=== PATIENT | male | born 1965 | race African-American/Black ===

== ENCOUNTER 2020-11-22 20:40 | Inpatient (IN) ==
[2020-11-23] MEDS ORDERED: Ondansetron 4 MG/2 ML VIAL IVP ONE (00:45)
[2020-11-23] MEDS ORDERED: Morphine Sulfate 2 MG/ML SYRINGE IVP ONE ×2 (00:46→03:46)
[2020-11-23 01:20] LABS: Basophils # 0.1 K/mcL (0.0-0.2); Basophils % 0.5 %; Eosinophils # 0.3 K/mcL (0.0-0.6); Eosinophils % 1.9 %; Hematocrit 38.1 % (37.5-50.1); Hemoglobin 12.8 g/dL (12.9-16.9); Immature Granulocytes % 0.4 % (0-4); Lymphocytes # 2.3 K/mcL (0.6-4.6); Lymphocytes % 16.3 %; Mean Corpuscular HGB Conc 33.6 g/dL (31.6-35.5); Mean Corpuscular Hemoglobin 26.9 pg (28.0-33.3); Mean Platelet Volume 10.7 fL (9.4-12.4); Monocytes # 0.8 K/mcL (0.0-1.3); Monocytes % 5.8 %; Neutrophils # 10.8 K/mcL (1.6-8.9); Platelet Count 332 K/mcL (140-400); Red Blood Count 4.76 M/mcL (4.19-5.50); Red Cell Distribution Width 14.7 % (11.5-14.5); Segmented Neutrophils % 75.1 %; White Blood Count 14.4 K/mcL (4.3-11.1)
[2020-11-23 02:04] LABS: BUN/Creatinine Ratio 15 (6-26); Blood Urea Nitrogen 20 mg/dL (6-20); Calcium 9.8 mg/dL (8.6-10.3); Carbon Dioxide 24 mEq/L (23-29); Chloride 103 mEq/L (98-107); Glucose 118 mg/dL (70-105); Osmolality,Calculated 290 (280-300); Potassium 3.6 mEq/L (3.5-5.1); Sodium 138 mEq/L (136-145); eGFR For African Americans > 60 (> 60); eGFR For Non-African Americans 57 (> 60)
[2020-11-23] MEDS ORDERED: Lidocaine 1% 20 ML MDV INFILT ONE (03:15)
[2020-11-23] MEDS ORDERED: Vancomycin 1,500 MG/265 ML IV.SOLN IVPB ONE (04:07)
[2020-11-23] MEDS ORDERED: Piperacillin/Tazobactam 3.375 GM in 0.9 % Sodium Chloride Mini Bag 100 ML IVPB ONE (04:07)
[2020-11-23 05:02] LABS: Appearance,Synovial Fluid Hazy (Clear-Hazy); Color,Synovial Fluid Red (Straw); Source,Synovial Fluid left knee arthrocent
[2020-11-23] MEDS ORDERED: Naloxone 0.4 MG/ML INJ IVP PRN (05:44)
[2020-11-23] MEDS ORDERED: Acetaminophen 325 MG TABLET PO PRN (05:44)
[2020-11-23] MEDS ORDERED: 0.9 % Sodium Chloride 1,000 ML IVC ONE (05:45)
[2020-11-23] MEDS ORDERED: Morphine Sulfate 2 MG/ML SYRINGE IVP PRN (06:07)
[2020-11-23 07:13] LABS: Source,Synovial Fluid Left knee
[2020-11-23 07:19] LABS: Appearance,Synovial Fluid Hazy (Clear-Hazy); Color,Synovial Fluid Straw (Straw)
[2020-11-23] MEDS ORDERED: *HR* HYDROmorphone 2 MG/ML SYRINGE IVP ONE (08:26)
[2020-11-23 08:43] LABS: Lymphocytes,Synovial Fluid 0 %
[2020-11-23 11:04] LABS: Bilirubin,Urine Negative (Negative); Blood,Urine Negative (Negative); Clarity,Urine Clear (Clear); Color,Urine Light-Yellow (Yellow); Glucose,Urine (UA) Normal (Normal); Ketones,Urine Negative (Negative); Leukocyte Esterase,Urine Negative (Negative); Nitrite,Urine Negative (Negative); Protein,Urine Trace mg/dL (Neg-Trace); Specific Gravity,Urine 1.019 (1.010-1.025); Urobilinogen,Urine Normal (Normal)
[2020-11-23] MEDS: Acetaminophen IV 1,000 MG/100 ML BAG IVPB SCH ×3 (12:47→23:52)
[2020-11-23 13:03] LABS: Chlamydia Trachomatis DNA Ur NOT DETECTED (Not Detect)
[2020-11-23] MEDS: Piperacillin/Tazobactam 3.375 GM in 0.9 % Sodium Chloride Mini Bag 100 ML IVPB SCH ×2 (15:57→23:53)
[2020-11-23] MEDS: Melatonin 3 MG TABLET PO PRN (21:46)
[2020-11-24] MEDS: Vancomycin 1,500 MG/265 ML IV.SOLN IVPB SCH (05:08)
[2020-11-24 05:26] LABS: Basophils # 0.1 K/mcL (0.0-0.2); Basophils % 0.4 %; Eosinophils # 0.3 K/mcL (0.0-0.6); Eosinophils % 2.6 %; Hematocrit 35.1 % (37.5-50.1); Hemoglobin 11.8 g/dL (12.9-16.9); Immature Granulocytes % 0.5 % (0-4); Lymphocytes # 1.6 K/mcL (0.6-4.6); Lymphocytes % 13.7 %; Mean Corpuscular HGB Conc 33.6 g/dL (31.6-35.5); Mean Corpuscular Hemoglobin 26.7 pg (28.0-33.3); Mean Corpuscular Volume 79.4 fL (83.0-100.0); Mean Platelet Volume 10.6 fL (9.4-12.4); Monocytes # 1.1 K/mcL (0.0-1.3); Monocytes % 9.2 %; Neutrophils # 8.7 K/mcL (1.6-8.9); Platelet Count 293 K/mcL (140-400); Red Blood Count 4.42 M/mcL (4.19-5.50); Red Cell Distribution Width 14.7 % (11.5-14.5); Segmented Neutrophils % 73.6 %; White Blood Count 11.8 K/mcL (4.3-11.1)
[2020-11-24 05:54] LABS: BUN/Creatinine Ratio 11 (6-26); Blood Urea Nitrogen 13 mg/dL (6-20); Calcium 9.4 mg/dL (8.6-10.3); Carbon Dioxide 24 mEq/L (23-29); Chloride 101 mEq/L (98-107); Glucose 130 mg/dL (70-105); Osmolality,Calculated 280 (280-300); Sodium 134 mEq/L (136-145); eGFR For African Americans > 60 (> 60); eGFR For Non-African Americans > 60 (> 60)
[2020-11-24] MEDS: Acetaminophen IV 1,000 MG/100 ML BAG IVPB SCH ×4 (07:38→23:07)
[2020-11-24] MEDS: Piperacillin/Tazobactam 3.375 GM in 0.9 % Sodium Chloride Mini Bag 100 ML IVPB SCH ×3 (07:42→23:11)
[2020-11-24] MEDS: amLODIPine 5 MG TABLET PO SCH (07:45)
[2020-11-24] MEDS: Gabapentin 400 MG CAPSULE PO SCH ×3 (07:45→20:03)
[2020-11-24] MEDS: Ketorolac 15 MG/ML VIAL IVP PRN ×2 (12:05→20:09)
[2020-11-24] MEDS: Pantoprazole 40 MG VIAL IVP SCH (12:05)
[2020-11-24 13:01] LABS: Procalcitonin 0.26 ng/mL (0.00-0.15)
[2020-11-25] MEDS: Ketorolac 15 MG/ML VIAL IVP PRN ×3 (05:41→21:58)
[2020-11-25] MEDS: Vancomycin 1,500 MG/265 ML IV.SOLN IVPB SCH (05:41)
[2020-11-25] MEDS: Acetaminophen IV 1,000 MG/100 ML BAG IVPB SCH (07:29)
[2020-11-25] MEDS: Piperacillin/Tazobactam 3.375 GM in 0.9 % Sodium Chloride Mini Bag 100 ML IVPB SCH ×3 (07:36→23:57)
[2020-11-25] MEDS: Pantoprazole 40 MG VIAL IVP SCH (07:36)
[2020-11-25] MEDS: amLODIPine 5 MG TABLET PO SCH (07:36)
[2020-11-25] MEDS: Gabapentin 400 MG CAPSULE PO SCH ×3 (07:36→21:58)
[2020-11-25 08:57] LABS: Source,Synovial Fluid Right knee
[2020-11-25 10:13] LABS: Appearance,Synovial Fluid Hazy (Clear-Hazy); Color,Synovial Fluid Straw (Straw)
[2020-11-25 10:18] LABS: Basophils # 0.1 K/mcL (0.0-0.2); Basophils % 0.6 %; Eosinophils # 0.6 K/mcL (0.0-0.6); Hematocrit 34.1 % (37.5-50.1); Hemoglobin 11.2 g/dL (12.9-16.9); Immature Granulocytes % 0.4 % (0-4); Lymphocytes # 1.5 K/mcL (0.6-4.6); Lymphocytes % 14.8 %; Mean Corpuscular HGB Conc 32.8 g/dL (31.6-35.5); Mean Corpuscular Hemoglobin 26.5 pg (28.0-33.3); Mean Corpuscular Volume 80.6 fL (83.0-100.0); Monocytes # 0.5 K/mcL (0.0-1.3); Monocytes % 4.9 %; Neutrophils # 7.6 K/mcL (1.6-8.9); Platelet Count 279 K/mcL (140-400); Red Blood Count 4.23 M/mcL (4.19-5.50); Red Cell Distribution Width 14.9 % (11.5-14.5); Segmented Neutrophils % 73.3 %; White Blood Count 10.4 K/mcL (4.3-11.1)
[2020-11-25] MEDS: predniSONE 20 MG TABLET PO SCH (10:33)
[2020-11-25 10:37] LABS: BUN/Creatinine Ratio 13 (6-26); Blood Urea Nitrogen 17 mg/dL (6-20); Calcium 8.9 mg/dL (8.6-10.3); Carbon Dioxide 23 mEq/L (23-29); Chloride 102 mEq/L (98-107); Glucose 154 mg/dL (70-105); Osmolality,Calculated 285 (280-300); Potassium 3.7 mEq/L (3.5-5.1); Sodium 135 mEq/L (136-145); eGFR For African Americans > 60 (> 60); eGFR For Non-African Americans 59 (> 60)
[2020-11-25] MEDS: Melatonin 3 MG TABLET PO PRN (21:58)
[2020-11-26] MEDS ORDERED: polyethylene glycoL 3350 17 GM POWD.PACK PO PRN (00:03)
[2020-11-26] MEDS: Vancomycin 1,500 MG/265 ML IV.SOLN IVPB SCH (05:29)
[2020-11-26 05:32] LABS: Basophils % 0.3 %; Eosinophils # 0.1 K/mcL (0.0-0.6); Eosinophils % 1.2 %; Hematocrit 30.5 % (37.5-50.1); Hemoglobin 10.5 g/dL (12.9-16.9); Immature Granulocytes % 0.6 % (0-4); Lymphocytes # 1.6 K/mcL (0.6-4.6); Lymphocytes % 13.5 %; Mean Corpuscular HGB Conc 34.4 g/dL (31.6-35.5); Mean Corpuscular Hemoglobin 27.4 pg (28.0-33.3); Mean Corpuscular Volume 79.6 fL (83.0-100.0); Mean Platelet Volume 10.9 fL (9.4-12.4); Monocytes # 0.8 K/mcL (0.0-1.3); Monocytes % 6.6 %; Neutrophils # 9.3 K/mcL (1.6-8.9); Platelet Count 291 K/mcL (140-400); Red Blood Count 3.83 M/mcL (4.19-5.50); Red Cell Distribution Width 14.8 % (11.5-14.5); Segmented Neutrophils % 77.8 %
[2020-11-26 05:57] LABS: BUN/Creatinine Ratio 14 (6-26); Blood Urea Nitrogen 17 mg/dL (6-20); Calcium 8.9 mg/dL (8.6-10.3); Carbon Dioxide 24 mEq/L (23-29); Chloride 105 mEq/L (98-107); Glucose 252 mg/dL (70-105); Osmolality,Calculated 296 (280-300); Potassium 3.7 mEq/L (3.5-5.1); Sodium 138 mEq/L (136-145); eGFR For African Americans > 60 (> 60); eGFR For Non-African Americans > 60 (> 60)
[2020-11-26 07:17] VITALS: BP 119/66; PULSE 73; TEMP 98.3; O2SAT 96
[2020-11-26] MEDS: Ketorolac 15 MG/ML VIAL IVP PRN (10:06)
[2020-11-26] MEDS: Piperacillin/Tazobactam 3.375 GM in 0.9 % Sodium Chloride Mini Bag 100 ML IVPB SCH (10:07)
[2020-11-26] MEDS: Gabapentin 400 MG CAPSULE PO SCH (10:07)
[2020-11-26] MEDS: Pantoprazole 40 MG VIAL IVP SCH (10:07)
[2020-11-26] MEDS: predniSONE 20 MG TABLET PO SCH (10:07)
[2020-11-26] MEDS: amLODIPine 5 MG TABLET PO SCH (10:07)
[2020-11-26] MEDS ORDERED: Vancomycin 1,500 MG/265 ML IV.SOLN IVPB SCH (17:00)
[2020-11-26] MEDS ORDERED: Vancomycin 1,250 MG/262.5 ML IV.SOLN IVPB SCH (17:00)
[2020-11-28 11:09] LABS: ANA IgG by ELISA NONE DETECTED (None Detected)
== END 2020-11-26 14:53 | disposition home or self-care (01) | DRG 351 ==
LOC: 3BNU 20:40 → EMEROOARM 20:40 → 3BNU 11-23 14:42 → SUATTDRO 11-25 18:53
PROVIDERS: ADMIT Internal Medicine; ATTEND Internal Medicine